=== PATIENT | female | born 1995 | race Caucasian/White ===

== ENCOUNTER → 2021-10-01 09:53 | Outpatient (CLI) | payer BC, SELFPAY ==
--- NOTE | 2021-10-01 09:56 | MR_ITS ---
FINAL REPORT CLINICAL HISTORY: RIGHT ANTERIOR SHOULDER PAIN, RIGHT ARM WEAKNESS, HX ROTATOR CUFF REPAIR 2018 FINDINGS: Multiplanar MR imaging of the right shoulder was performed without contrast. The tendons of the rotator cuff are intact without evidence of rotator cuff tear. The a.c. joint is intact. No abnormal fluid is seen in the subacromial/subdeltoid bursa. The glenoid labrum is intact. The long head of the biceps tendon is intact. Small glenohumeral joint effusion is seen. There is no evidence of fracture or dislocation. The musculature is intact. There is a lobular cyst at the inferior aspect of the AC joint measuring 7 mm, likely a ganglion. IMPRESSION: Likely a ganglion at the inferior aspect of the AC joint. Reviewed, Interpreted and Dictated by Christiano Wise III, MD Transcribed by Dona Naylor Authenticated and [facility]
== END ==
PROVIDERS: PCP Nurse Practitioner Family; Visit Provider Nurse Practitioner Family
DX: M25.511 Pain in right shoulder (principal); R29.898 Other symptoms and signs involving the musculoskeletal system; R20.0 Anesthesia of skin; R20.2 Paresthesia of skin; Z98.890 Other specified postprocedural states
CPT/HCPCS: 73221

== ENCOUNTER → 2023-01-22 08:49 | Outpatient (CLI) | payer BC, SELFPAY ==
[2023-01-22 09:32] LABS: Basophils # 0.1 K/mm3 (0-0.2); Basophils % 0.9 % (0.1-2.0); Eosinophils # 0.1 K/mm3 (0.0-0.4); Hematocrit 41.3 % (37.0-47.0); Hemoglobin 14.3 g/dL (12.2-16.2); Lymphocytes # 2.4 K/mm3 (0.7-4.5); Lymphocytes % 33.9 % (10-50); Mean Corpuscular HGB Conc 34.7 g/dL (31.8-35.4); Mean Corpuscular Volume 89.3 fl (81-99); Mean Platelet Volume 8.1 fl (7.4-10.4); Monocytes # 0.3 K/mm3 (0.1-1.0); Monocytes % 4.7 % (1.7-9.3); Neutrophils # 4.2 K/mm3 (1.8-7.8); Neutrophils % 59.5 % (37.0-80.0); Platelet Count 289 K/mm3 (142-424); Red Blood Count 4.63 M/mm3 (4.20-5.40); Red Cell Distribution Width 12.6 % (11.5-17.5)
[2023-01-22 10:38] LABS: Alanine Aminotransferase 20 U/L (12-78); Albumin Level 4.3 g/dl (3.5-5.0); Albumin/Globulin Ratio 1.6 (1.1-1.8); Alkaline Phosphatase 74 U/L (38-126); Anion Gap 12.2 mEq/L (5-15); Aspartate Amino Transferase 26 U/L (14-36); Bilirubin,Total 0.5 mg/dl (0.2-1.3); Blood Urea Nitrogen 10 mg/dl (7-17); Carbon Dioxide 25 mmol/L (22.0-30.0); Chloride 105 mmol/L (98-107); Chol/HDL Ratio 2.7 (1-3.5); Cholesterol 136 mg/dl (140-200); Estimated Glomerular Filt Rate 66 ml/min (>60); GFR (African American) 80 ML/MIN (>60); Globulin 2.7 g/dL (1.3-3.2); Glucose 86 mg/dl (74-100); HDL Cholesterol 50 mg/dl (40-60); Potassium 4.2 mmoL/L (3.5-5.1); Sodium 138 mmol/L (136-145); Triglycerides 87 mg/dl (30-150); VLDL Cholesterol 17 mg/dL (0-40)
[2023-01-22 10:49] LABS: Direct LDL Cholesterol 67.07 mg/dL (100-129)
[2023-01-22 11:09] LABS: Thyroid Stimulating Hormone 1.52 uIU/mL (0.465-4.68)
[2023-01-22 11:21] LABS: Troponin I < 0.01 ng/ml (0.00-0.034)
[2023-01-22 13:30] LABS: Ferritin 52.7 ng/ml (6.24-137)
== END ==
LOC: RT 08:54
PROVIDERS: PCP Nurse Practitioner Family; Visit Provider Nurse Practitioner Family
DX: R07.89 Other chest pain (principal); R00.9 Unspecified abnormalities of heart beat; R73.03 Prediabetes
CPT/HCPCS: 80053; 80061; 82728; 83735; 84443; 84484; 85025; 93225

== ENCOUNTER → 2023-02-12 09:13 | Outpatient (CLI) | payer BC, SELFPAY ==
--- NOTE | 2023-02-12 09:31 | XR_ITS ---
FINAL REPORT TECHNIQUE: Chest PA & Lateral CLINICAL HISTORY: Precordial chest pain COMPARISON: None FINDINGS: 2 views of the chest were performed. The heart size is normal. The mediastinum is within normal limits. There is no acute cardiopulmonary process. There are no pleural effusions. There is no pneumothorax. The bony thorax appears intact. IMPRESSION: No acute cardiopulmonary process. Reviewed, Interpreted and Dictated by Pa Armendariz MD Transcribed by Christianne Carr Authenticated and [facility]
[2023-02-12 10:22] LABS: Basophils # 0.1 K/mm3 (0-0.2); Basophils % 0.7 % (0.1-2.0); Eosinophils # 0.1 K/mm3 (0.0-0.4); Eosinophils % 0.9 % (0.1-12.0); Hematocrit 40.6 % (37.0-47.0); Hemoglobin 13.9 g/dL (12.2-16.2); Lymphocytes # 2.3 K/mm3 (0.7-4.5); Lymphocytes % 31.7 % (10-50); Mean Corpuscular HGB Conc 34.2 g/dL (31.8-35.4); Mean Corpuscular Hemoglobin 30.1 pg (27.0-31.2); Mean Corpuscular Volume 88.1 fl (81-99); Mean Platelet Volume 8.9 fl (7.4-10.4); Monocytes # 0.3 K/mm3 (0.1-1.0); Monocytes % 4.5 % (1.7-9.3); Neutrophils # 4.5 K/mm3 (1.8-7.8); Neutrophils % 62.2 % (37.0-80.0); Platelet Count 313 K/mm3 (142-424); Red Blood Count 4.61 M/mm3 (4.20-5.40); Red Cell Distribution Width 12.6 % (11.5-17.5); White Blood Count 7.2 K/mm3 (4.8-10.8)
[2023-02-12 11:07] LABS: Magnesium 2.1 mg/dl (1.6-2.3)
[2023-02-12 11:13] LABS: C-Reactive Protein 0.5 mg/L (0-4)
[2023-02-12 11:23] LABS: Troponin I < 0.01 ng/ml (0.00-0.034)
[2023-02-14 14:56] LABS: Insulin Level Total 7.9 uIU/mL (2.6-24.9)
== END ==
PROVIDERS: PCP Nurse Practitioner Family; Visit Provider Nurse Practitioner Family
DX: R07.89 Other chest pain (principal); E16.1 Other hypoglycemia
CPT/HCPCS: 36415; 71046; 83525; 83735; 84484; 85025; 86140

== ENCOUNTER → 2023-02-22 13:55 | Outpatient (CLI) | payer BC, SELFPAY ==
--- NOTE | 2023-02-22 13:56 | CA_ITS ---
APPROVED REPORT EXAM: Comprehensive 2D, Doppler, and color-flow Echocardiogram Numerical Control Drill Press Operator: Julienne Ocampo, RT(R) Ht: 5 ft 7 in Wt: 200lbs BSA: 2.02 BP: 129/87 mmHg Indications: CP, SOB, abn EKG 2D Dimensions LVEF (Tamez's) 63.40 % F: 54 - 74 LV Volume 101.80 mL F: 46 - 106 LV Volume Index 50.4 mL/m2 F: 29 - 61 LA Volume 23.40 mL LA Volume Index 11.58 mL/m2 (M/F) 16-34 EF AP4 66.80 % EF AP2 57.7 % EF BP 63.4 % GL Strain -18.1 % M-Mode Dimensions RVDd 1.98 cm (0.9-2.6) LA Diam 3.55 cm (1.9-4.0) LVDd 4.95 cm (3.5-5.7) LVDs 3.40 cm (3.5-5.7) IVSd 0.68 cm (0.6-1.1) PWd 0.68 cm (0.6-1.1) EF (Teich) 59.00% FS 31.30% EDV (Teich) 115.50 mL ESV (Teich) 47.40 mL LV Diastology E Decel Time 260 (160-240 msec) E/A Ratio 1.3 Mitral Valve MV E Max Mason. 72.0 (40-130 cm/s) MV A Velocity 57.0 (40-130 cm/s) E/A Ratio 1.28 MV PHT 76.0 ms Left Ventricle The left ventricle is normal size. The left ventricular systolic function is normal. The left ventricular ejection fraction is within the normal range. There is normal left ventricular wall thickness. There is normal LV segmental wall motion. The left ventricular diastolic function is normal. LVEF is 55%. Right Ventricle The right ventricle is normal size. The right ventricular systolic function is normal. Atria The left atrium size is normal. The right atrium size is normal. There is no Doppler evidence of interatrial shunt. Aortic Valve The aortic valve opens well. The aortic valve is trileaflet. There is no aortic valvular stenosis. No aortic regurgitation is present. Mitral Valve The mitral valve is normal in structure. No evidence of mitral valve stenosis. There is no mitral valve regurgitation noted. Tricuspid Valve The tricuspid valve leaflets are thin and pliable. Trace tricuspid regurgitation. There is insufficient TR jet to estimate RVSP. Pulmonic Valve The pulmonary valve is normal in structure. Trace pulmonic regurgitation. Great Vessels The aortic root is normal in size. The ascending aorta is normal in size. The IVC is not well-visualized. Pericardium There is no pericardial effusion. Other Information Study Quality: Adequate Conclusion Normal biventricular systolic function. No significant valvular stenosis or regurgitation. Electronically signed by : Marizol Hoff MD 02/24/2023 00:07:38
== END ==
LOC: RT 13:56
PROVIDERS: PCP Nurse Practitioner Family; Visit Provider Internal Medicine
DX: R06.00 Dyspnea, unspecified (principal); R07.89 Other chest pain; R94.31 Abnormal electrocardiogram [ECG] [EKG]; Z82.49 Family history of ischemic heart disease and other diseases of the circulatory system
CPT/HCPCS: 93306

== ENCOUNTER 2023-02-23 20:55 | Emergency (ER) | payer BC, SELFPAY ==
[2023-02-23 20:57] VITALS: BP 127/79; PULSE 70; RESP 16; TEMP 36.5; O2SAT 100; BMI 29.7
[2023-02-23 21:11] VITALS: PULSE 68
--- NOTE | 2023-02-23 21:54 | XR_ITS ---
PROCEDURE INFORMATION: Exam: XR Right Tibia and Fibula Exam date and time: 02/23/2023 10:00 PM Age: 27 years old Clinical indication: Pain; Lower leg; Right; Additional info: Spontaneous calf pain TECHNIQUE: Imaging protocol: Radiologic exam of the right tibia and fibula. Views: 2 views. COMPARISON: No relevant prior studies available. FINDINGS: Bones/joints: Normal. Soft tissues: Normal. IMPRESSION: No acute findings.
--- NOTE | 2023-02-23 21:54 | HMH.EDGENADL ---
Discharge Plan Disposition Patient Disposition: Home, Self-Care Chief Complaint: Extremity Injury, Lower Prescriptions Prescriptions: No Action fluoxetine 10 mg capsule 10 mg PO DAILY Qty: 30 2RF Referrals Follow up/Referrals: Alva uDong APRN [Primary Care Provider] - See instructions Activity Restrictions/Add. Instructions Additional Instructions/Restrictions: At this time is felt you are safe to be discharged home. If new or worsening symptoms please not hesitate to return the emergency department. You will be contacted by ultrasound in the morning, please present for your duplex ultrasound to rule out DVT. Clinical Impressions Clinical Impression: Calf pain Discharge ED Provider: Abhishek Thompson General Adult HPI General Chief complaint: Extremity Injury, Lower Stated complaint: pain in right calf Time Seen by Provider: 02/23/23 21:10 Mode of Arrival: Ambulatory Source of Information: Patient Limitations: No Limitations Description of Symptoms (Recalled from ER Triage Doc. by RN): pt reports pain to her right calf since 2am this morning, denies injury reports it doesnt hurt to keep leg straight but when she bends it or uses it in any way the pain is worse History of Present Illness HPI narrative: Patient is a 27-year-old female with past medical history of chest pain currently being evaluated by cardiology who presents emergency department for evaluation of calf pain. Onset was acute, occurring over the last 24 hours, posterior right-sided calf pain. Patient denies proximal thigh swelling or discoloration. No other acute complaints at this time. Patient denies chest pain, shortness of breath. Related Data Previous Rx's Medication Instructions Recorded fluoxetine 10 mg capsule 10 mg PO DAILY #30 caps 02/12/23 Allergies Allergy/AdvReac Type Severity Reaction Status Date / Time No Known Allergies Allergy Verified 02/17/23 10:46 [facility] Disclaimer: The information contained in this section may have been updated after the patient was seen, as this information can be updated by other users. Medical History Prediabetes Surgical History History of cholecystectomy S/P carpal tunnel release S/P rotator cuff repair Social History Smoking Status: Never smoker alcohol intake: current substance use type: denies use current occupational status: employed Travel in the last 8 weeks: None ROS Obtained: Yes Systems reviewed as appropriate & no additional complaints except as documented Physical Exam General General appearance: alert and in no apparent distress Head Head exam: atraumatic and normocephalic Eye Eye exam: Present PERRL and EOMI ENT ENT exam: Present mucous membranes moist Neck Neck exam: Present normal inspection Chest Chest inspection: Present normal inspection and symmetric chest wall rise Respiratory Respiratory exam: Present normal lung sounds bilaterally; Absent respiratory distress Cardiovascular Cardiovascular exam: Present regular rate and normal rhythm Abdominal Exam Abdominal exam: Present soft; Absent tenderness Extremities Exam Extremities exam: Present normal inspection and other (Mild posterior calf tenderness, no asymmetric swelling, 2+ right dorsal pedal pulse.) Neurological Exam Neurological exam: Present alert Psychiatric Psychiatric exam: Present normal affect Skin Skin exam: Present warm and dry Medical Decision Making Ryan Inquiry Pt receiving controlled substance: No Vital Signs: 02/23/23 20:57 02/23/23 21:11 Temperature 97.7 F Temperature Source Oral Pulse Rate [Right] 70 68 Respiratory Rate 16 Blood Pressure [Right Arm] 127/79 Blood Pressure Mean [Right Arm] 95 Blood Pressure Source [Right Arm] Automatic Cuff Blood Pressure Position [Right Arm] Sitting 02 Sat b
--- NOTE | 2023-02-23 22:11 | PC.NURSE ---
patient with RAD
--- NOTE | 2023-02-23 22:14 | PC.NURSE ---
patient back from [facility]
[2023-02-23 22:52] VITALS: BP 127/79; PULSE 76; RESP 16; TEMP 36.8; O2SAT 100
== END 2023-02-23 22:54 | disposition home or self-care (01) ==
PROVIDERS: Emergency Provider Emergency Medicine; PCP Nurse Practitioner Family
DX: M79.661 Pain in right lower leg (principal)
CPT/HCPCS: 73590; 99283

== ENCOUNTER → 2023-02-24 12:51 | Outpatient (CLI) | payer BC, SELFPAY ==
--- NOTE | 2023-02-24 12:55 | CA_ITS ---
FINAL REPORT TECHNIQUE: Multiple transverse and longitudinal images were performed of the right femoral-popliteal deep venous system with augmentation and compression maneuvers. CLINICAL HISTORY: PROXIMAL LATERAL RT CALF PAIN AND EDEMA X 1 DAY COMPARISON: None FINDINGS: Right lower extremity duplex ultrasound demonstrates normal flow in the deep venous system. There is no abnormal echogenicity to suggest thrombus. There is normal compression and augmentation. IMPRESSION: No evidence of right DVT. Reviewed, Interpreted and Dictated by Pa Armendariz MD Transcribed by Christianne Carr Authenticated and . [facility]
== END ==
LOC: RT 12:52
PROVIDERS: PCP Nurse Practitioner Family; Visit Provider Nurse Practitioner Family
DX: M79.661 Pain in right lower leg (principal)
CPT/HCPCS: 93971

== ENCOUNTER 2023-02-25 11:47 | Outpatient (CLI) | payer BC, SELFPAY ==
--- NOTE | 2023-02-25 11:48 | CT_ITS ---
APPROVED REPORT Mechanic Insulator: CLINICAL INDICATION Chest Pain TECHNIQUE Image Acquisition: A 128 slice MDCT scanner ([employer] View) was used for data acquisition. A noncontrast coronary calcium scan was performed. A CT attenuation threshold of 130 Hounsfield units (HU) was used for the detection of calcium in contiguous voxels of 1 sq mm in area to be counted as individual lesions. Bolus tracking in the ascending aorta with a threshold of 180 HU was performed. Immediately afterwards, ECG synchronized cardiac CT was then performed from the cardiac base to apex using retrospective gating with ECG tube current modulation. A total of 85 mL of Isovue 370 mg/mL contrast medium was administered at 5 mL/sec followed by a saline flush using a biphasic injection protocol. A tube voltage of 120 KVp was used. The patient received the following medications prior to the cardiac CT. 25 mg of oral metoprolol 5 mg of intravenous metoprolol 0.8 mg of sublingual nitroglycerin The average heart rate at the time of acquisition was 57 bpm and regular. Image Reconstruction Transaxial images were reconstructed at 0.67 mm slide thickness. Data was reviewed interactively on an advanced workstation capable of 2 and 3-dimensional displays in all conventional reconstruction formats, including multiplanar reformations, maximum intensity projections, curved multiplanar reformations, and volume rendered reconstructions. When applicable, selected routine images describing the relevant coronary anatomy and pathology were saved and sent to PACS. Complications None Technical Quality Overall image quality was good. Coronary artery opacification was adequate. Total DLP (Dose-Length Product) is 1707.5 mGy-cm. The reported value represents the total of one or more individual components during the CT acquisition of this date and at this time, and as such, the same value may appear in more than one CT report depending on the interpreting/reporting physicians. COMPARISON None FINDINGS CT Coronary Calcium Scoring LMA (Left Main Artery) = 0 LAD (Left Anterior Descending) = 0 LCX (Left Coronary Circumflex) = 0 RCA (Right Coronary Artery) = 0 Total Calcium Score = 0 using the AJ-130 method. The interpretation of the calcium heart score is based on the following continuum*: 0 = no calcified plaque detected (risk of coronary artery disease is very low ??? less than 5%) 1-10 = calcium detected in extremely minimal levels (risk of coronary diseases is still low ??? less than 10%) 11-100 = mild levels of plaque detected with certainty (mild or minimal narrowing of heart arteries is likely) 101-400 = definite,at least moderate levels of plaque detected (relatively high risk of a heart attack within 3-5 years) >401-999 = extensive levels of plaque detected (high risk of heart attack, high levels of vascular disease are present, high likelihood of at least one significant coronary narrowing) *The calcium heart score quantifies the burden of coronary calcification/plaque in the coronary arteries. The calcium heart score is not able to evaluate the presence or burden of non-calcified (i.e. soft) plaque. There is no identifiable calcification in the aortic valve, mitral annulus or mitral valve, pericardium, or myocardium. Coronary CT Angiography The coronary arterial system is right dominant. Quantitative Stenosis Grading: Left Main (LM): The left main originates normally from the left sinus of Valsalva. The LM bifurcates into the left anterior descending artery and left circumflex artery. The LM is patent with no evidence of atherosclerosis. Left Anterior Descending (LAD) and Diagonal Branches: The LAD gives off 2 diagonal branches The LAD and its branches are adams
[2023-02-25 12:00] VITALS: BMI 29.7
[2023-02-25 12:06] VITALS: BP 116/69; PULSE 91; RESP 18; TEMP 36.7; O2SAT 100
[2023-02-25 12:46] LABS: Chloride 105 mmol/L (98-107); Sodium 138 mmol/L (136-145)
[2023-02-25 12:49] LABS: Blood Urea Nitrogen 11 mg/dl (7-17); Calcium 8.2 mg/dl (8.4-10.2); Carbon Dioxide 28 mmol/L (22.0-30.0); Creatinine Clearance Estimated 127 mL/min (50-200); Estimated Glomerular Filt Rate 75 ml/min (>60); GFR (African American) 90 ML/MIN (>60); Glucose 71 mg/dl (74-100)
[2023-02-25 13:10] LABS: HCG Qualitative, Serum Negative (Negative)
[2023-02-25 13:38] VITALS: BP 136/81; PULSE 68
[2023-02-25 13:40] VITALS: BP 116/62; PULSE 64; RESP 16; TEMP 36.4; O2SAT 98
--- NOTE | 2023-02-25 13:46 | PC.NURSE ---
1324- Arrived to CT room, 139/80, HR 70. Nitro 0.8mg SL given per CT protocol 1329-123/74 post nitro vital 1335-121/61, HR 70-80, metoprolol 5mg iv given per protocol 1338 cta complete. Taken to post op to paxton, report given to Rylan Whittington RN.
[2023-02-25 13:50] VITALS: BP 127/62; PULSE 66; RESP 18; O2SAT 98
[2023-02-25 14:00] VITALS: BP 129/76; PULSE 68; RESP 16; O2SAT 98
[2023-02-25 14:10] VITALS: BP 104/68; PULSE 50; RESP 18; O2SAT 99
== END 2023-02-25 14:18 | disposition home or self-care (01) ==
PROVIDERS: PCP Nurse Practitioner Family; Visit Provider Internal Medicine
DX: R06.00 Dyspnea, unspecified (principal); R07.89 Other chest pain; R94.31 Abnormal electrocardiogram [ECG] [EKG]; Z82.49 Family history of ischemic heart disease and other diseases of the circulatory system
CPT/HCPCS: 75571; 75574; 80048; 84703; Q9967

== ENCOUNTER → 2023-03-03 09:37 | Outpatient (CLI) | payer BC, SELFPAY ==
[2023-03-03 10:19] LABS: D-Dimer 0.57 ug/mL (0.0-0.5)
== END ==
PROVIDERS: PCP Nurse Practitioner Family; Visit Provider Nurse Practitioner Family
DX: M79.669 Pain in unspecified lower leg (principal)
CPT/HCPCS: 36415; 85378

== ENCOUNTER → 2023-03-05 10:29 | Outpatient (CLI) | payer BC, SELFPAY ==
[2023-03-07 18:09] LABS: Anti-Thrombin III Antigen 87 % (72-124); Protein C Functional 105 % (73-180); Protein S Functional 108 % (63-140)
[2023-03-09 16:30] LABS: Anti-Cardio Antibody IgM 10 MPL U/mL (0-12); Anti-Cardiolipin Antibody IgG <9 GPL U/mL (0-14); Anticardiolipin Ab,IgA,Qn <9 APL U/mL (0-11)
[2023-03-09 20:51] LABS: Beta-2 Glycoprotein I Ab, IgM <9 (0-32)
[2023-03-16 16:32] LABS: Anti-Cardiolipin Antibody IgG <10 GPL (.); Anti-Cardiolipin Antibody IgM <10 MPL (.); Beta-2 Glycoprotein I Ab, IgA <10 SAU (.); Beta-2 Glycoprotein I Ab, IgG <10 SGU (.); Beta-2 Glycoprotein I Ab, IgM <10 SMU (.); Hexagonal Phase Phospholipid 8 sec (.); Prothrombin Time 10.5 sec (.); Thrombin Time 16.9 sec (.)
== END ==
LOC: LAB 10:29
PROVIDERS: PCP Nurse Practitioner Family; Visit Provider Nurse Practitioner Family
DX: R79.89 Other specified abnormal findings of blood chemistry (principal)
CPT/HCPCS: 36415; 81240; 81241; 85301; 85302; 85306; 85597; 85598; 85610; 85613; 85670; 85730; 86146; 86147

== ENCOUNTER 2024-02-01 11:20 | Outpatient (CLI) | payer BC, SELFPAY ==
[2024-02-01 11:53] LABS: Basophils # 0.1 K/mm3 (0-0.2); Basophils % 0.5 % (0.1-2.0); Eosinophils # 0.1 K/mm3 (0.0-0.4); Eosinophils % 0.5 % (0.1-12.0); Hematocrit 40.3 % (37.0-47.0); Lymphocytes # 2.4 K/mm3 (0.7-4.5); Lymphocytes % 22.7 % (10-50); Mean Corpuscular HGB Conc 34.9 g/dL (31.8-35.4); Mean Corpuscular Hemoglobin 30.2 pg (27.0-31.2); Mean Corpuscular Volume 86.6 fl (81-99); Mean Platelet Volume 7.7 fl (7.4-10.4); Monocytes # 0.6 K/mm3 (0.1-1.0); Monocytes % 5.4 % (1.7-9.3); Neutrophils # 7.6 K/mm3 (1.8-7.8); Neutrophils % 70.8 % (37.0-80.0); Platelet Count 294 K/mm3 (142-424); Red Blood Count 4.66 M/mm3 (4.20-5.40); Red Cell Distribution Width 13.1 % (11.5-17.5); White Blood Count 10.7 K/mm3 (4.8-10.8)
[2024-02-01 12:51] LABS: HCG Qualitative, Serum Positive (Negative)
== END 2024-02-01 23:59 | disposition home or self-care (01) ==
PROVIDERS: PCP Nurse Practitioner Family; Visit Provider Nurse Practitioner Family
DX: Z34.90 Encounter for supervision of normal pregnancy, unspecified, unspecified trimester (principal)
CPT/HCPCS: 36415; 84703; 85025

== ENCOUNTER 2024-12-11 09:40 | Outpatient (CLI) | payer BC, SELFPAY ==
--- OUTSIDE RECORDS SUMMARY | 2024-10-18 11:20 | XMS_ITS | Encounter Summary ---
Author Organization [facility] Address [address] [place] [address] Care Team Providers Care Striker Out Name Role Phone Alva Duong APRN Primary Care Provider + [phone] Reason for Visit * Reason Comments Care Encounter Details Date Type Department Care Team (Late st Contact Info) Description 10/18/2024 11:20 AM EDT Visit [facility] OBGYN [address] [place] [address] Manasa Lantigua MD [address] [facility] [address] [place] [address] exam (Primary Dx) Social History Tobacco Use Types Packs/Day Years Used Date Smoking Tobacco: Never Smokeless Tobacco: Never Alcohol Use Standard Drinks/Week Comments Not Currently 0 (1 standard drink = 0.6 oz pur e alcohol) [facility] Utilities Answer Date Recorded In the past 12 months has [employer], gas, oil, or water [employer] threatened to shut off services in your home? No 09/06/2024 AUDIT-C Answer Date Recorded Q1: How often do you have a drink containing alcohol? Never 09/06/2024 Q2: How many drinks containi ng alcohol do you have on a typical day when you are drinking? Patient does not drink Q3: How often do you have si x or more drinks on one occasion? Never 09/06/2024 Overall Financial Resource Strain (CARDIA) Answe r Date Recorded How hard is it for you to pa y for the very basics like food, housing, medical care, and heating? Not hard at all 09/06/2024 [facility] Health - Occupational Stress Questionnaire Answer Date Recorded Do you feel stress - tense, restless, nervous, or anxious, or unable to sleep at night because your mind is troubled all the time - these days? Not at all 09/06/2024 Exercise Vital Sign Answer Date Recorde d On average, how many days pe r week do you engage in moderate to strenuous exercise (like a brisk walk)? 5 days 09/06/2024 On average, how many minutes do you engage in exercise at this level? 30 min 09/06/2024 Hunger Vital Sign Answer Date Recorded Within the past 12 months, y ou worried that your food would run out before you got the money to buy more. Never true 09/07/19 Within the past 12 months, t he food you bought just didn't last and you didn't have money to get more. Never true 09/06/2024 PRAPARE - Transportation Answer Date Re corded In the past 12 months, has l ack of transportation kept you from medical appointments or from getting medications? No 08/14 In the past 12 months, has l ack of transportation kept you from meetings, work, or from getting things needed for daily living? No 09/06/2024 [place] Depression Scale Answer Date Recorded [place] Depression Scale Total 1 10/18/2024 The thought of harming myself has occurred to me . Never 10/18/2024 Abuse Screen Answer Date Recorded Feels Unsafe at Home or Work/School no 09/06/2024 Feels Threatened by Someone no 08/14 Does Anyone Try to Keep You From Having Contact with Others or Doing Things Outside Your Home? no 09/06/2024 Physical Signs of Abuse Present no 09/06/2024 Housing Stability Answer Date Recorded Current Living Arrangements home 08/14 Potentially Unsafe Housing Conditions none 09/06/2024 Family and Community Support Answer Rivera e Recorded If for any reason you need h elp with day-to-day activities such as bathing, preparing meals, shopping, managing finances, etc., do you get the help you need? I don't need any help 09/06/2024 How often do you feel lonely or isolated from those around you? Never 09/06/2024 Employment Answer Date Recorded Do you want help finding or keeping work or a job? I do not need or want help 09/06/2024 Disabilities Answer Date Recorded Difficulty Concentrating, Remembering or Making Decisions no 09/06/2024 Difficulty Managing Errands Independently no 09/06/2024 Education Answer Date Recorded Do you want help with school or training? For example, starting or completing job training or getting a high school diploma, GED or equivalent No 09/06/2024 Preferred Language Czech 09/06/2024 PHQ-2 Answer Date Recorded Patient Health Questionnaire-2 Score 0 09/06/2024 Comments No Sex and Gender Information Value Date Recorded Sex Assigned at Not on file Legal Sex Female 11:59 AM EST Gender Identity Not on file Sexual Orientation Not on file documented as of this encounter Last Filed Vital Signs Vital Sign Reading Time Taken Comments Blood Pressure 98/80 10/18/2024 11:15 AM EDT Pulse - - Temperature - - Respiratory Rate - - Oxygen Saturation - - Inhaled Oxygen Concentration - - Weight 104 kg (230 lb) 10/18/2024 11:15 AM EDT Height 172.7 cm (5' 8 ) 10/18/2024 11:15 AM EDT Body Mass Index 34.97 10/18/2024 11:15 AM EDT documented in this encounter Progress Notes * Manasa Lantigua MD - 10/18/2024 11:20 AM EDT Images from the original note were not included. Chief Complaint Patient presents with Care Visit Violeta Grajeda is a 28 y.o. who presents today for a 6 week(s) check. C/S: no Vaginal, Spontaneous Information for the patient's : Teodora Grajeda [[id number]] 09/07/2025 female Teodora Grajeda 3165 g (6 lb 15.6 oz) Gestational Age: 37w2d Baby Discharged: Discharged with Mom Delivering Physician: Manasa Lantigua MD Her was complicated by no known issues. The laceration was 2nd degree and is healing well. Patient describes vaginal bleeding as heavy. Patient is bottle feeding. She desires undecided for contraception. She would like to discuss the following complaints today: none. Patient denies concerns for depression/anxiety. Patient denies suicidal or homicidal ideation. Her depression screening questionnaire: 1. No treatment is indicated Last Pap : 04/2023. Results: negative. HPV: unknown . Last Completed Pap Smear This patient has no relevant Health Maintenance data. The additional following portions of the patient's history were reviewed and updated as appropriate: allergies and current medications. Review of Systems All other systems reviewed and are negative. I have reviewed and agree with the HPI, ROS, and historical information as entered above. Manasa Lantigua MD BP 98/80 Ht 172.7 cm (68 ) Wt 104 kg (230 lb) LMP 12/21/2023 (Approximate) No BMI 34.97 kg/m?? Physical Exam Vitals and nursing note reviewed. Exam conducted with a technical communication teacher present. Constitutional: Appearance: Normal appearance. She is well-developed. HENT: Head: Normocephalic and atraumatic. Eyes: General: No scleral icterus. Pupils: Pupils are equal, round, and reactive to light. Neck: Thyroid: No thyroid mass or thyromegaly. Pulmonary: Effort: Pulmonary effort is normal. Breath sounds: Normal breath sounds. No rhonchi. Abdominal: General: Bowel sounds are normal. There is no distension. Palpations: Abdomen is soft. Abdomen is not rigid. There is no mass. Tenderness: There is no abdominal tenderness. There is no guarding. Hernia: No hernia is present. Genitourinary: Vagina: Normal. Cervix: Normal. Uterus: Normal. Musculoskeletal: General: Normal range of motion. Cervical back: Normal range of motion and neck supple. No muscular tenderness. Right lower leg: No edema. Left lower leg: No edema. Skin: General: Skin is warm and dry. Neurological: General: No focal deficit present. Mental Status: She is alert and oriented to person, place, and time. Psychiatric: Mood and Affect: Mood normal. Behavior: Behavior normal. Behavior is cooperative. Assessment and Plan Problem List Items Addressed This Visit None Visit Diagnoses exam - Primary S/p Vaginal delivery, 6 week(s) . Doing well. Return to normal physical activity. No pelvic restrictions. Baby doing well. Bottlefeeding going well. No si/sx of depression Contraception: contraceptive methods: IUD. Insertion date: to be scheduled Return for Annual physical. Manasa Lantigua MD 10/18/2024 documented in this encounter Plan of Treatment Upcoming Encounters Date Type Department Care Team (Late st Contact Info) Description 12/20/2024 1:15 PM EDT Office Visit [facility] OBGYN [address] [place] [address] Phylicia Cat, RD MANAGER [address] [facility] [address] [place] [address] documented as of this encounter Visit Diagnoses Diagnosis exam- Primary documented in this encounter Care Teams Striker Out Relationship Specialty Start Date End Date Alva Duong APRN [address] [address] PCP - General Internal Medicine 09/11/24 documented as of this encounter
[2024-12-11 17:09] LABS: Free T4 (Free Thyroxine) 1.08 ng/dl (0.78-2.19)
[2024-12-11 17:10] LABS: T4 (Thyroxine) 6.9 ug/dl (5.53-11.0)
[2024-12-11 17:24] LABS: Thyroid Stimulating Hormone 1.29 uIU/mL (0.465-4.68)
[2024-12-11 19:45] LABS: Hemoglobin A1C 5.3 % (4.0-6.0)
--- OUTSIDE RECORDS SUMMARY | 2024-12-12 10:42 | XMS_ITS | Encounter Summary ---
Author Organization [facility] Address [address] [place] [address] Care Team Providers Care Weight Loss Counselor Name Role Phone Alva Duong APRN Primary Care Provider [phone] Encounter Details Date Type Department Care Team (Late Contact Info) Description 07/04/2024 Results Follow-Up [facility] OBGYN [address] [place] [address] Tanisha Montoya, CAR REPOSSESSOR [address] [address] Social History Tobacco Use Types Packs/Day Years Used Date Smoking Tobacco: Never Smokeless Tobacco: Never Alcohol Use Standard Drinks/Week Comments Not Currently 0 (1 standard drink = 0.6 oz pur e alcohol) Comments Yes Sex and Gender Information Value Date Recorded Sex Assigned at Not on file Legal Sex Female 11:59 AM EST Gender Identity Not on file Sexual Orientation Not on file documented as of this encounter Plan of Treatment Upcoming Encounters Date Type Department Care Team (Late st Contact Info) Description 12/20/2024 1:15 PM EDT Office Visit [facility] OBGYN [address] [place] [address] Phylicia Cat, CAR REPOSSESSOR [address] [address] documented as of this encounter Visit Diagnoses Not on filedocumented in this encounter Care Teams Weight Loss Counselor Relationship Specialty Start Date End Date Alva Duong, ELIZABETH [address] [address] [place] [address] PCP - General Internal Medicine 09/11/24 documented as of this encounter
--- OUTSIDE RECORDS SUMMARY | 2024-12-12 10:42 | XMS_ITS | Clinical Summary ---
Author Organization [facility] Address [address] [place] [address] Care Team Providers Care Repair Department Manager Name Role Phone Alva Duong APRN Primary Care Provider [phone] Allergies No known active allergies Medications , CLASSIC, vitamin 28-0.8 MG tablet tablet Take 1 tablet by mouth Daily. 02/01/2024 Active famotidine (PEPCID) 20 MG tablet Take 1 tablet by mouth 2 (Two) Times a Day. Active docusate sodium 100 MG capsule Take 1 capsule by mouth 2 (Two) Times a Day. 60 capsule 1 09/09/2024 2:12 PM EDT 09/09/2024 Active ibuprofen (ADVIL,MOTRIN) 600 MG tablet Take 1 tablet by mouth Every 6 (Six) Hours As Needed for Mild Pain (First Line: Mild pain.). 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 Encounters Date Type Department Care Team Description 10/18/2024 11:20 AM EDT Visit [facility] OBGYN [address] [place] [address] Manasa Lantigua MD exam (Primary Dx) 10/18/2024 Travel 09/19/2024 Maternal Screening [facility] [address] [place] [address] Nataliia Moore RN 09/19/2024 Maternal Screening [facility] [address] [place] [address] Nataliia Moore RN from Last 3 Months Immunizations Immunization Administration Dates Next Due Tdap 07/03/2024 Social History Tobacco Use Types Packs/Day Years Used Date Smoking Tobacco: Never Smokeless Tobacco: Never Tobacco Cessation:Counseling Given: Not Answered Alcohol Use Standard Drinks/Week Comments Not Currently 0 (1 standard drink = 0.6 oz pur e alcohol) [facility] [employer] Answer Date Recorded In the past 12 months has [employer], gas, oil, or water [employer] threatened to shut off services in your [...] and heating? Not hard at all 09/06/2024 [facility] of Occupat ional Health - Occupational Stress Questionnaire Answer Date [...] things needed for daily living? No 09/06/2024 [place] Depression Scale Answer Date Recorded [place] Depression Scale Total 1 10/18/2024 The thought [...] GED or equivalent No 09/06/2024 Preferred Language Mozambican 09/06/2024 PHQ-2 Answer Date Recorded Patient Health Questionnaire-2 Score 0 09/06/2024 Comments No Sex and Gender Information Value Date Recorded Sex Assigned at Not on file Legal Sex Female 11:59 AM EST Gender Identity Not on file Sexual Orientation Not on file Last Filed Vital Signs Vital Sign Reading Time Taken Comments Blood Pressure 98/80 10/18/2024 11:15 AM EDT Pulse 77 09/09/2024 8:20 AM EDT Temperature 36.7 C (98.1 F) 09/09/2024 8:20 AM EDT Respiratory Rate 20 09/09/2024 8:20 AM EDT Oxygen Saturation 97% 09/07/2024 10:02 AM EDT Inhaled Oxygen Concentration - - Weight 104 kg (230 lb) 10/18/2024 11:15 AM EDT Height 172.7 cm (5' 8 ) 10/18/2024 11:15 AM EDT Body Mass Index 34.97 10/18/2024 11:15 AM EDT Plan of Treatment Upcoming Encounters Date Type Department Care Team (Late st Contact Info) Description 12/20/2024 1:15 PM EDT Office Visit [facility] OBGYN [address] [place] [address] Phylicia Cat, DREDGE ENGINEER [address] [place] [address] Health Maintenance Due Date Last Done Comments Annual Gynecologic Pelvic an d Breast Exam 1994 PAP SMEAR 10/31/2015 ANNUAL PHYSICAL 02/04/2024 INFLUENZA VACCINE 10/13/2024 TDAP/TD VACCINES (2 - Td or Tdap) 07/03/2034 025 HEPATITIS C SCREENING Completed 02/04/2024 Pneumococcal Vaccine 0-49 Aged Out No longer eligible based on patient's age to complete this topic Procedures Procedure Name Priority Date/Time Associated Diagnosis Comments OBSTETRIC PANEL Routine 02/04/2024 9:17 AM EST care in first trimester from Last 3 Months or Most Recently Relevant to Health Maintenance Results * (ABNORMAL) Obstetric Panel (02/04/2024 9:17 AM EST) Hepatitis B Surface Ag Negative Negative [facility] Hep C Virus Ab Non Reactive Non Reactive [facility] Comment: HCV antibody alone does not differentiate between previously resolved infection and active infection. Equivocal and Reactive HCV antibody results should be followed up with an HCV RNA test to support the diagnosis of active HCV infection. RPR Non Reactive Non Reactive [facility] Rubella Antibodies, IgG 3.11 Immune >0.99 index [facility] Comment: Non-immune <0.90 Equivocal 0.90 - 0.99 Immune >0.99 ABO Type O [facility] Rh Factor Positive [facility] Comment: Please note: Prior records for this patient's ABO / Rh type are not available for additional verification. Antibody Screen Negative Negative [facility] WBC 10.8 3.4 - 10.8 x10E3/uL [facility] Comment: Effective February 14, 2024 profile [id number] WBC will be made non-orderable as a stand-alone order code. RBC 4.63 3.77 - 5.28 x10E6/uL [facility] Hemoglobin 13.8 11.1 - 15.9 g/dL [facility] Hematocrit 41.9 34.0 - 46.6 % [facility] MCV 91 79 - 97 fL [facility] MCH 29.8 26.6 - 33.0 pg [facility] MCHC 32.9 31.5 - 35.7 g/dL [facility] RDW 12.7 11.7 - 15.4 % [facility] Platelets 327 150 - 450 x10E3/uL [facility] Neutrophil Rel % 71 Not Estab. % [facility] Lymphocyte Rel % 20 Not Estab. % [facility] Monocyte Rel % 7 Not Estab. % [facility] Eosinophil Rel % 1 Not Estab. % [facility] Basophil Rel % 1 Not Estab. % [facility] Neutrophils Absolute 7.8(H) 1.4 - 7.0 x10E3/uL [facility] Lymphocytes Absolute 2.2 0.7 - 3.1 x10E3/uL [facility] Monocytes Absolute 0.7 0.1 - 0.9 x10E3/uL [facility] Eosinophils Absolute 0.1 0.0 - 0.4 x10E3/uL [facility] Basophils Absolute 0.1 0.0 - 0.2 x10E3/uL [facility] Immature Granulocyte Rel % 0 Not Estab. % [facility] Immature Grans Absolute 0.0 0.0 - 0.1 x10E3/uL [facility] Blood 02/04/2024 9:17 AM EST 02/04/2024 Narrative [facility] (AMBULATORY) - 02/06/2024 1:07 PM EST Performed at: 01 - [facility] [address] [place], [place] [id number] Collar Padder Blindstitch: Amor Toussaint PhD, Phone: [phone] Patient Fasting: N Tanisha Montoya APRN LAB BLOOD ORDERABLES Fatou giang Result [facility] (AMBULATORY) [address] [place] [address], [facility] [address] [place] [address], from Last 3 Months or Most Recently Relevant to Health Maintenance Insurance [facility] PPO Advance Directives * CPR (Attempt to Resuscitate) (Latest Code Status on File) Date Activated Date Inactivated Comments 09/07/2024 8:04 PM 09/09/2024 4:40 PM Question Answer Comments Code Status (Patient has no pulse and is not breathing): CPR (Attempt to Resuscitate) Medical Interventions (Patie nt has pulse or is breathing): Full * CPR (Attempt to Resuscitate) Date Activated Date Inactivated Comments 09/06/2024 2:28 PM 09/07/2024 8:04 PM Question Answer Comments Code Status (Patient has no pulse and is not breathing): CPR (Attempt to Resuscitate) Medical Interventions (Patie nt has pulse or is breathing): Full Support Level Of Support Discussed With: Patient Care Teams Repair Department Manager Relationship Specialty Start Date End Date Alva Duong APRN [address] [place] [address] PCP - General Internal Medicine 09/11/24
--- OUTSIDE RECORDS SUMMARY | 2024-12-12 10:42 | XMS_ITS | Encounter Summary ---
Author Organization [facility] Address [address] [place] [address] Care Team Providers Care Assistant Front Desk Manager Name Role Phone Ad Alva ELIZABETH Primary Care Provider [phone] Encounter Details Date Type Department Care Team (Latest Contact Info) Description 10/18/2024 Travel Social History Tobacco Use Types Packs/Day Years Used Date Smoking Tobacco: Never Smokeless Tobacco: Never Alcohol Use Standard Drinks/Week Comments Not Currently 0 (1 standard drink = 0.6 oz pur e alcohol) [facility] Utilities Answer Date Recorded In the past 12 months has [employer]), gas, oil, or water [employer] threatened to shut off services in your [...] and heating? Not hard at all 09/06/2024 [place] of Occupat ional Health - Occupational Stress [...] things needed for daily living? No 09/06/2024 [place] Depression Scale Answer Date Recorded [place] Depression Scale Total 1 10/18/2024 The thought [...] GED or equivalent No 09/06/2024 Preferred Language Kazakh 09/06/2024 PHQ-2 Answer Date Recorded Patient Health [...] Description 12/20/2024 1:15 PM EDT Office Visit [facility] OBGYN [address] [place] [address] Phylicia Cat, TRANSPORT TRUCK DRIVER [address] [facility] [address] [place] [address] documented as of this encounter Visit Diagnoses Not on filedocumented in this encounter Care Teams Assistant Front Desk Manager Relationship Specialty Start Date End Date Alva Duong APRN [address] [address] PCP - General Internal Medicine 09/11/24 documented as of this encounter
[2024-12-12 11:53] LABS: Insulin Level Total 14.4 uIU/mL (2.6-24.9)
[2024-12-12 13:59] LABS: Triiodothyronine (T3) Free 2.9 pg/mL (2.0-4.4)
[2024-12-12 15:25] LABS: Cortisol,AM 6.2 ug/dL (6.2-19.4)
== END 2024-12-11 23:59 | disposition home or self-care (01) ==
LOC: LAB.DROPOF 12-12 10:33
PROVIDERS: PCP Nurse Practitioner Family; Visit Provider Nurse Practitioner Family
DX: E16.1 Other hypoglycemia (principal); R63.5 Abnormal weight gain; R23.2 Flushing
CPT/HCPCS: 82533; 82670; 83036; 83525; 84144; 84436; 84439; 84443; 84481; 86376; 86800

== ENCOUNTER 2024-12-19 08:59 | Outpatient (CLI) | payer BC, SELFPAY ==
--- OUTSIDE RECORDS SUMMARY | 2024-12-19 09:02 | XMS_ITS | Encounter Summary ---
Author Organization [facility] Address [address] [place] [address] Care Team Providers Care Building Construction Supervisor Name Role Phone Alva Duong APRN Primary Care Provider [phone] Encounter Details Date Type Department Care Team (Late Contact Info) Description 07/04/2024 Results Follow-Up [facility] OBGYN [address] [place] [address] Tanisha Montoya, PRISON GUARD [address] [address] Social History Tobacco Use Types Packs/Day Years [...] Description 12/20/2024 1:15 PM EDT Office Visit [facility] OBGYN [address] [place] [address] Phylicia Cat, PRISON GUARD [address] [address] documented as of this encounter Visit Diagnoses Not on filedocumented in this encounter Care Teams Building Construction Supervisor Relationship Specialty Start Date End Date Alva Duong, ELIZABETH [address] [place] [address] [place] [address] PCP - General Internal Medicine 09/11/24 documented as of this encounter
--- OUTSIDE RECORDS SUMMARY | 2024-12-19 09:02 | XMS_ITS | Clinical Summary ---
Author Organization [facility] Address [address] [place] [address] Care Team Providers Care Dyeing Machine Feeder Name Role Phone Alva Duong APRN Primary Care Provider [phone] Allergies No known active allergies Medications , [...] Team Description 10/18/2024 11:20 AM EDT Visit [facility] OBGYN [address] [place] [address] Manasa Lantigua MD exam (Primary Dx) 10/18/2024 Travel 09/19/2024 Maternal Screening [facility] [address] [place] [address] Nataliia Moore RN 09/19/2024 Maternal Screening [facility] [address] [place] [address] Nataliia Moore RN from Last 3 Months Immunizations Immunization Administration Dates Next Due Tdap 07/03/2024 Social History Tobacco Use Types Packs/Day Years Used Date Smoking Tobacco: Never Smokeless Tobacco: Never Tobacco Cessation:Counseling Given: Not Answered Alcohol Use Standard Drinks/Week Comments Not Currently 0 (1 standard drink = 0.6 oz pur e alcohol) [facility] [employer] Answer Date Recorded In the past 12 months has [employer], gas, oil, or water [employer] threatened to shut off services in your [...] and heating? Not hard at all 09/06/2024 [facility] [place] of Occupat ional Health - Occupational Stress [...] things needed for daily living? No 09/06/2024 [place] Depression Scale Answer Date Recorded [place] Depression Scale Total 1 10/18/2024 The thought [...] GED or equivalent No 09/06/2024 Preferred Language Senegalese 09/06/2024 PHQ-2 Answer Date Recorded Patient Health [...] Description 12/20/2024 1:15 PM EDT Office Visit [facility] OBGYN [address] [place] [address] Phylicia Cat, ACCOUNT AUDITOR [address] [place] [address] Health Maintenance Due Date Last Done Comments [...] LAB Comment: Effective February 14, 2024 profile [id number] WBC will be made non-orderable as a [...] 02/04/2024 9:17 AM EST 02/04/2024 Narrative [facility] (AMBULATORY) - 02/06/2024 1:07 PM EST Performed at: 01 - [facility] [address] [place], [place] [id number] Cafe Aide: Amor Toussaint PhD, Phone: [phone] Patient Fasting: N Tanisha Montoya APRN LAB BLOOD ORDERABLES Fatou giang Result [facility] (AMBULATORY) [address] [place] [address], [facility] [address] [place] [address], from Last 3 Months or Most Recently Relevant to Health Maintenance Insurance [facility] PPO Advance Directives * CPR (Attempt to [...] Of Support Discussed With: Patient Care Teams Dyeing Machine Feeder Relationship Specialty Start Date End Date Alva Duong APRN [address] [place] [address] PCP - General Internal Medicine 09/11/24
--- NOTE | 2024-12-19 09:03 | XR_ITS ---
FINAL REPORT CLINICAL HISTORY: right sided neck pain FINDINGS: CERVICAL SPINE Six views were obtained. There is no acute fracture. The disc spaces are well-preserved. There is no malalignment. Paraspinal soft tissues are unremarkable. IMPRESSION: No acute process. Reviewed, Interpreted and Dictated by Lindsay Cruz MD Transcribed by Dona Naylor Authenticated and [facility]
== END 2024-12-19 23:59 | disposition home or self-care (01) ==
LOC: RAD 09:00
PROVIDERS: PCP Nurse Practitioner Family; Visit Provider Nurse Practitioner Family
DX: M54.2 Cervicalgia (principal); R29.898 Other symptoms and signs involving the musculoskeletal system
CPT/HCPCS: 72050

== ENCOUNTER 2025-01-12 09:16 | Outpatient (CLI) | payer BC, SELFPAY ==
--- OUTSIDE RECORDS SUMMARY | 2025-01-12 09:35 | XMS_ITS | Encounter Summary ---
Author Organization [facility] Address [address] [place] [address] Care Team Providers Care Manufacturing Job Titles Name Role Phone Alva Duong APRN Primary Care Provider [phone] Encounter Details Date Type Department Care Team (Late st Contact Info) Description 07/04/2024 Results Follow-Up [facility] OBGYN [address] [place] [address] Tanisha Montoya, OVEREDGE SEWER [address] [facility] [address] [place] [address] Social History Tobacco Use Types Packs/Day Years [...] as of this encounter Plan of Treatment Not on file documented as of this encounter Visit Diagnoses Not on filedocumented in this encounter Care Teams Manufacturing Job Titles Relationship Specialty Start Date End Date Alva Duong APRN [address] [place] [address] PCP - General Internal Medicine 09/11/24 documented as of this encounter
--- OUTSIDE RECORDS SUMMARY | 2025-01-12 09:35 | XMS_ITS | Clinical Summary ---
Author Organization [facility] Address [address] [place] [address] Care Team Providers Care Dermatopathologist Name Role Phone Alva Duong APRN Primary Care Provider [phone] Allergies No known active allergies Medications , [...] Team Description 10/18/2024 11:20 AM EDT Visit [facility] OBGYN [address] [place] [address] Manasa Lantigua MD exam (Primary Dx) 10/18/2024 Travel from Last 3 Months Immunizations Immunization Administration Dates Next Due Tdap 07/03/2024 Social History Tobacco Use Types Packs/Day Years Used Date Smoking Tobacco: Never Smokeless Tobacco: Never Tobacco Cessation:Counseling Given: Not Answered Alcohol Use Standard Drinks/Week Comments Not Currently 0 (1 standard drink = 0.6 oz pur e alcohol) [facility] Utilities Answer Date Recorded In the past 12 months has e electric, gas, oil, or water company threatened to shut off services in your [...] and heating? Not hard at all 09/06/2024 [facility] [place] of Occupat ional Health - Occupational Stress [...] money to buy more. Never true 09/07/19 25 Within the past 12 months, t he [...] things needed for daily living? No 09/06/2024 [place] Depression Scale Answer Date Recorded [place] Depression Scale Total 1 10/18/2024 The thought [...] GED or equivalent No 09/06/2024 Preferred Language Hong Konger 09/06/2024 PHQ-2 Answer Date Recorded Patient Health [...] 10/18/2024 11:15 AM EDT Plan of Treatment Health Maintenance Due Date Last Done Comments [...] LAB Comment: Effective February 14, 2024 profile [id number] WBC will be made non-orderable as a [...] 02/04/2024 9:17 AM EST 02/04/2024 Narrative [facility] (AMBULATORY) - 02/06/2024 1:07 PM EST Performed at: 01 - [address] [id number] [employer] Specialist: Amor Toussaint PhD, Phone: [phone] Patient Fasting: N us Tanisha Montoya CUTTING MACHINE TENDER DECORATIVE LAB BLOOD ORDERABLES Fatou l Result [facility] (AMBULATORY) [address] [place] [address], [facility] [address] [place] [address], [place] [phone] from Last 3 Months or Most Recently Relevant to Health Maintenance Insurance [facility] PPO Advance Directives * CPR (Attempt [...] Of Support Discussed With: Patient Care Teams Dermatopathologist Relationship Specialty Start Date End Date Alva Duong APRN [address] [place] [address] [place] [address] PCP - General Internal Medicine 09/11/24
[2025-01-14 14:10] LABS: Cortisol,AM 7.4 ug/dL (6.2-19.4)
== END 2025-01-12 23:59 | disposition home or self-care (01) ==
LOC: LAB 09:17
PROVIDERS: PCP Nurse Practitioner Family; Visit Provider Nurse Practitioner Family
DX: R79.89 Other specified abnormal findings of blood chemistry (principal)
CPT/HCPCS: 36415; 82024; 82533